=== PATIENT | female | born 1975 | race Caucasian/White ===

== ENCOUNTER 2019-03-22 08:07 | Inpatient (IN) | payer MEDICAID ==
[~2019-03-22] VITALS: Ht 160 cm; Wt 64.0 kg
[2019-03-22] VITALS (25 sets, daily range): BP systolic 101–121; BP diastolic 54–72; PULSE 57–80; RESP 8–19; Ht 160 cm; Wt 64.0 kg
[~2019-03-22 08:07] MED LIST: CEFAZOLIN 2 GM/50 ML (PMX) 50 ML IVPB SCH; SOD CHLORIDE 0.9% 1,000 ML IV SCH
[2019-03-22] MEDS ORDERED: DEXAMETHASONE 4 MG/ML 5 ML INJ ONE (12:29)
[2019-03-22] MEDS ORDERED: CEFAZOLIN 1 GM INJ ONE (12:29)
[2019-03-22] MEDS ORDERED: PROPOFOL 20 ML ONE (12:29)
[2019-03-22] MEDS ORDERED: MIDAZOLAM 1 MG/ML 2 ML INJ ONE (12:29)
[2019-03-22] MEDS ORDERED: LIDOCAINE 2% (SDV) 5 ML INJ ONE (12:29)
[2019-03-22] MEDS ORDERED: SUCCINYLCHOLINE CHLORIDE 100 MG/5 ML SYG IV ONE (12:29)
[2019-03-22] MEDS ORDERED: ONDANSETRON 4 MG INJ ONE ×2 (12:29→14:57)
[2019-03-22] MEDS ORDERED: GENTAMICIN 80 MG INJ ONE (12:56)
[2019-03-22] MEDS ORDERED: LIDOCAINE 1%/EPI (1:100,000) (MDV) 20 ML ONE ×2 (12:56→17:12)
[2019-03-22] MEDS ORDERED: POLYMYXIN/BACITRACIN 1L IRRIG ONE (12:56)
[2019-03-22] MEDS ORDERED: BUPIVACAINE 0.25% (MPF) 30 ML INJ ONE ×2 (12:56→17:12)
[2019-03-22] MEDS ORDERED: GENTAMICIN 160 MG in SOD CHLORIDE 0.9% 100 ML IVPB ONE (13:00)
--- NOTE | 2019-03-22 14:56 | PREAC ---
Date/Time of Note Date/Time of Note DATE: 03/22/19 TIME: 14:53 Anesthesia Eval and Record Evaluation Time Pre-Procedure Interview DATE: 03/22/19 TIME: 14:53 Age 43 Sex female NPO: 8 hrs Preoperative diagnosis Breast Cancer L. Planned procedure Modified Mastectomy, 1st Stage Breast Reconstruction Past Medical History Past Medical History: None Surgery & Anesthesia Issues No known issue Meds Anticoagulation: No Beta Corey within 24 hr: No Reason Beta Corey not given: Pt. not on B-Corey No Active Prescriptions or Reported Meds Current Medications Sodium Chloride 1,000 ml @ 75 mls/hr [id number] IV Last administered on 03/22/19at 06:00; Admin Dose 75 MLS/HR; Start 03/22/19 at 06:00; Stop 03/22/19 at 19:19 Cefazolin Sodium/ Dextrose 50 ml @ 100 mls/hr PREOP IVPB ; Start 03/22/19 at 06:00; Stop 03/22/19 at 16:00 Meds reviewed: Yes Allergies Coded Allergies: No Known Allergy (Unverified , 03/22/19) Allergies Reviewed: Yes Labs/Studies Labs Reviewed: Reviewed by anesthesiologist Result Diagram: 03/22/19 1200 03/22/19 1200 Laboratory Tests 03/22/19 12:00 test: Negative Pre-procedure Exam Last vitals Vital Signs Date Temp Pulse Resp B/P (MAP) Pulse Ox O2 O2 Flow FiO2 Time Delivery Rate 03/22/19 98.1 57 16 104/64 100 Room Air 12:12 (77) Airway: Adequate mouth opening Mallampati: Mallampati II Teeth: Normal Lung: Normal Heart: Normal ASA Physical Status ASA physical status: 2 Emergency: None Planned Anesthetic General/MAC: ETT Pre-operative Attestations Prior to commencing anesthesia and surgery, the patient was re-evaluated, there was verification of: *The patient's identity *The results of appropriate recent lab work and preoperative vital signs *The above evaluation not changing prior to induction *Anesthetic plan, risk benefits, alternative and complications discussed with patient/family; questions answered; patient/family understands, accepts and wishes to proceed. SCOTT PATINO MD March 22, 2019 14:56
[2019-03-22] MEDS ORDERED: ROCURONIUM 50 MG INJ ONE (14:57)
[2019-03-22] MEDS ORDERED: KETOROLAC 30 MG INJ ONE ×2 (14:58→18:23)
--- NOTE | 2019-03-22 15:44 | HPN ---
Date/Time of Note Date/Time of Note DATE: 03/22/19 TIME: 15:44 Interval H&P Admission Note Pt. seen H&P reviewed: No system changes MAGEN ZIMMERMAN MD March 22, 2019 15:44
[2019-03-22] MEDS ORDERED: EPHEDrine 25 MG/5 ML SYG ONE (16:14)
[2019-03-22] MEDS ORDERED: ONDANSETRON 4 MG INJ IV PRN ×2 (16:30→18:00)
[2019-03-22] MEDS ORDERED: OXYCODONE/ACETAMINOPHEN (5/325) TAB PO PRN (18:00)
[2019-03-22] MEDS ORDERED: HYDROmorphONE 1 MG/5 ML IV SYRINGE IV PRN (18:00)
--- NOTE | 2019-03-22 18:51 | PAC ---
Date/Time of Note Date/Time of Note DATE: 03/22/19 TIME: 18:51 Post-Anesthesia Notes Post-Anesthesia Note Last documented vital signs Vital Signs Date Temp Pulse Resp B/P (MAP) Pulse Ox O2 O2 Flow FiO2 Time Delivery Rate 03/22/19 98.1 57 16 104/64 100 Room Air 12:12 (77) Activity: WNL Respiratory function: WNL Cardiovascular function: WNL Mental status: Baseline Pain reasonably controlled: Yes Hydration appropriate: Yes Nausea/Vomiting absent: Yes SCOTT PATINO MD March 22, 2019 18:51
--- NOTE | 2019-03-22 19:16 | OPPN ---
Date/Time of Note Date/Time of Note DATE: 03/22/19 TIME: 19:04 Operative Report Preoperative Diagnosis Immediately post Left Mastectomy for Advanced Left Breast Cancer Postoperative Diagnosis Same Operation/Procedure Performed Immediate First Stage Left Breast Reconstruction Using Subpectoral Tissue Insecticide Expert, Acellular Matrix, and Inferiorly based Major Fasciocutaneous Flap Surgeon Magen Drew M.D. music assistantlamar Patterson M.D. Anesthesia: general (E.T.I., Josh Doung M.D., Local: 60 ml. of 0.5% Lidocain, 0.125% Marcain, and 1/200,000 Epinephrine) Estimated blood loss: 0 - 10 ml's Transfusion Required none Specimen None Grafts/Implants 1. Tissue Insecticide Expert: Catarina Bey [id number] 350cc [id number] 2. Acellular Matrix: Integra, Surgimeaye PRS Ref.# [phone], 8cm x 16cm Lot# [id number] Complications none MAGEN DREW MD March 22, 2019 19:15
--- NOTE | 2019-03-22 20:42 | OPR ---
DATE OF OPERATION: 03/22/2019 PREOPERATIVE DIAGNOSIS: Locally advanced left breast cancer. POSTOPERATIVE DIAGNOSIS: Locally advanced left breast cancer. PROCEDURE: Left modified radical mastectomy with immediate reconstruction. ANESTHESIA: General. ANESTHESIOLOGIST: SURGEON: Dr. Danish Plata PLASTIC SURGEON: Dr. Magen Drew YARN WEIGHER: Dr. Hduson Dexter INDICATION FOR PROCEDURE: The patient is an unfortunate 43-year-old female who presented with an shyanne roximately 6 cm tumor of the left breast. Biopsy confirmed an invasive cancer. She also had biopsy- proven axillary metastasis. She underwent neoadjuvant chemotherapy with limited response and was the n counseled of the need for definitive surgical extirpation. She consented and was scheduled for [facility]. DESCRIPTION OF PROCEDURE: The patient was brought to the operating theater, placed under general ane sthesia. The left breast and axillary region was prepped and draped in the usual sterile fashion. The surgical incision which was previously demarcated by Dr. Drew was incised with 15 blade scalpel widely around the palpable tumor which appeared to be involving a portion of the skin. Subcutaneous tissue was then dissected with cautery. Skin edges were elevated with Allis-Broward clamps and skin fl aps were created using cautery in a sequential fashion, first superiorly to the clavicle then mediall y to the sternal border, inferiorly to the inframammary fold and laterally until the latissimus dorsi muscle was identified throughout its course. Mastectomy then took place from medial to lateral usin g cautery at the border of the pectoralis major muscle. The pectoralis minor muscle was identified. The clavipectoral fascia was incised to allow entry into the axilla. With blunt dissection along th e chest wall, the long thoracic nerve was identified and kept out of harm's way. More superiorly, th e axillary vein and thoracodorsal neurovascular bundles were identified and kept out of harm's way. There were obvious pathologic lymph nodes in the axilla. Therefore, a level I and level II lymph nod e dissection took place using the Voyant device and cautery, and occasionally, Hemoclips were utilize d. In this fashion, the axillary was cleared of any obvious disease, and the remaining connective ti ssue attachments to the latissimus dorsi muscle were then transected with cautery. Specimen was hima denis, oriented and sent for permanent pathologic analysis. The wound was irrigated. Minimal bleeding was controlled with cautery. At this point, Dr. Plata turned control of the operation over to Dr. Magen Drew who proceeded with i mmediate reconstruction, and he will dictate his portion of the operation separately. The total blood loss for Dr. Plata's portion of the operation was approximately 100 mL. There were n o complications, and when Dr. Plata left the room, the patient was in stable condition. Dictated By: DANISH PLATA MD TL/NTS Conf#: [id number] DID#: [id number] CC: MAGEN DREW MD; HUDSON DEXTER MD;*EndCC*
[2019-03-22] MEDS: D5W-0.45 NACL + KCL 20 MEQ 1,000 ML IV SCH (21:07)
[2019-03-22] MEDS: ACETAMINOPHEN 1000MG/100ML IV 100 ML IVPB PRN (21:07)
[2019-03-22] MEDS: morphine 2 MG INJ IV PRN (22:05)
[2019-03-23 00:23] VITALS: BP 105/55; PULSE 72; RESP 18
[2019-03-23] MEDS: D5W-0.45 NACL + KCL 20 MEQ 1,000 ML IV SCH ×3 (00:28→14:05)
--- NOTE | 2019-03-23 00:46 | OPR ---
DATE OF OPERATION: 03/22/2019 PREOPERATIVE DIAGNOSIS: Immediately post left mastectomy with extensive skin resection for advanced left breast cancer. FINAL DIAGNOSIS: Immediately post left mastectomy with extensive skin resection for advanced left br east cancer. OPERATION PERFORMED: Immediate first stage left breast reconstruction using subpectoral placement of tissue natural resources professor implant with implantation of acellular matrix and the use of an inferiorly based kasia or fasciocutaneous flap. SURGEON: Magen Drew MD CYANIDE POT HARDENER: Hudson Patterson MD ANESTHESIA: General endotracheal intubation. ANESTHESIOLOGIST: Josh Schwab MD LOCAL ANESTHETIC INFILTRATION: For postoperative pain control, 60 mL of 0.5% lidocaine, 0.125% Heather ine and 1:200,000 epinephrine solution. ESTIMATED BLOOD LOSS: Less than 10 mL. SPECIMEN: None. DRAIN: Hugo-Ferguson 10 mm flat (x1). DRESSING: Bactroban cream, dry sterile dressing, Tegaderm, ABD pads and mammary support. SPECIFICATIONS OF TISSUE PRODUCT PLANNER USED: [place] Artoura, catalog number [id number] 350 mL, serial num micah [id number]. Total of normal saline in tissue natural resources professor 100 mL. SPECIFICATIONS OF ACELLULAR MATRIX USED: Integra Surgimend PRS, reference number [phone], size 8 cm x 16 cm, lot number [id number]. OPERATIVE PROCEDURE: The patient received 2 grams of intravenous Ancef and 160 mg of intravenous gen tamicin as preoperative antibiotic. The patient was brought to the operating room and in supine posi tion, following adequate monitoring and induction of adequate level of general anesthesia using endot anand intubation. Operation was begun by Dr. Plata, who performed a left nice mastectomy with exte nsive skin resection due to the advanced large tumor that had not responded adequately to the neoadju vant chemotherapy. Following completion of mastectomy by Dr. Plata, I took over and proceeded with t he reconstruction. Initial examination showed a skin opening in an oval shape measuring approximatel y 20 cm in length and 16 cm in width. Hemostasis was carefully checked and assured using electrocoag ulation. Operative area was irrigated using triple antibiotic solution. Same solution was used to i mmerse the tissue natural resources professor and the acellular matrix for over half an hour prior to their use. Inferi or insertion of the pectoralis major muscle was from the chest wall and dissection was alex ied cephalad until an adequate pocket was created for the tissue natural resources professor. Hemostasis was checked an d assured throughout the procedure using electrocoagulation. Operative area was irrigated using copi ous amount of triple antibiotic solution. At this time, the tissue natural resources professor implant was primed with 100 mL of injectable normal saline using aseptic fluid transfer set as a closed delivery system provi ded by [employer]. All the air was removed from the tissue natural resources professor. The natural resources professor was place d inside the pocket and positioned appropriately. The tabs were connected to the chest wall using in terrupted stitches of 2-0 Monocryl. A 10 mm flat Hugo-Ferguson drain was inserted through a stab wou nd over anterior left axillary line inferior to the inframammary fold. This was carried over 8 cm in subcutaneous tissue cephalad to enter the operative space adjacent to the left axilla. The drain wa s now directed into the prepared pocket from superior aspect of the pocket adjacent to the axilla. I t was fixed to the skin using a single suture of 2-0 Monocryl. At this time, the acellular matrix wa s placed that was attached to the chest wall over the left inframammary line area and also to the inf erior border of elevated left pectoralis major muscle. Interrupted and continuous stitches of 2-0 Mo nocryl were used for this portion of the procedure. At this time, the large defect of skin overlying the left pectoralis major muscle and the tissue natural resources professor could not be primarily closed. Therefore, an inferiorly based large fasciocutaneous flap that included the entire width of the breast was eleva álvaro with the base of the flap and the pedicle inferior to the flap. This was advanced superiorly in order to close the defect of skin and subcutaneous tissue using interrupted and continuous stitches o f #1 Vicryl, followed by retention stitches of #1 Prolene. Repair was found to be satisfactory upon its completion. All counts were checked and reported to be correct prior to closure. Dressing was f ollowed as mentioned above, followed by mammary support. The patient tolerated this procedure very w ell and left the operating room to the recovery room awake, stable and in comfortable, satisfactory a nd extubated condition. Dictated By: MAGEN BARRERA/ALIREZA Conf#: [id number] DID#: [id number] CC: MAGEN DREW MD;*End*
--- NOTE | 2019-03-23 01:21 | HP ---
DATE OF ADMISSION: 03/22/2019 CHIEF COMPLAINT AND HISTORY OF PRESENT ILLNESS: The patient is a 43-year-old female with left breast tumor which was subsequently biopsied. The patient is being followed by Dr. Cordova. Biopsy confirme d invasive cancer. She also had biopsy proven axillary metastasis. The patient underwent neoadjuvan t chemotherapy with limited response and was then counseled of the need for definitive surgical proce dure. The patient underwent left modified radical mastectomy by Dr. Cordova with immediate reconstruct ion by Dr. Robin Drew. The patient has postoperative pain and is being admitted for further evaluat ion and management. The patient denies history of headache, dizziness, syncope. No history of cough . No abdominal pain. No history of nausea, vomiting. No history of focal weakness. REVIEW OF SYSTEMS: Other than postoperative pain, rest of review of systems unremarkable. ALLERGIES: NO KNOWN DRUG ALLERGIES. SOCIAL HISTORY: No smoking, no alcohol. FAMILY HISTORY: Noncontributory. PHYSICAL EXAMINATION: GENERAL: The patient is awake, alert. VITAL SIGNS: Temperature 96.8, pulse 72, respirations 13, blood pressure 106/54, O2 saturation 100% on room air. HEENT: Atraumatic, normocephalic. Conjunctivae are normal. Oropharynx is clear. NECK: Supple. No thyromegaly. CHEST: Fairly clear. CARDIOVASCULAR: S1, S2 normal. No murmur. ABDOMEN: Soft, nontender. Bowel sounds plus. EXTREMITIES: No leg edema. NEUROLOGIC: The patient is awake, alert, fairly oriented with no gross focal deficit. LABORATORY DATA: Done this morning, WBC 4.8, hemoglobin 10.6, platelet 195. Sodium 140, potassium 4 .1, BUN 12, creatinine 0.7, glucose 86. Liver enzymes normal. Serum hCG negative. IMPRESSION: Locally advanced left breast cancer status post left modified radical mastectomy with im mediate reconstruction. PLAN: The patient admitted on medical floor. The patient will be started on clear liquid diet to be advanced as tolerated. The patient has received IV Ancef and gentamicin as per protocol. For pain control, the patient was started on IV Tylenol, [place] and IV morphine. We will use SCD for DVT proph ylaxis. Dictated By: MOISE GREGORY/ALIREZA Conf#: [id number] DID#: [id number] CC: CASTRO CORDOVA MD;*[facility]*
[2019-03-23 02:00] VITALS: BP 100/60; PULSE 75; RESP 18
[2019-03-23] MEDS: ACETAMINOPHEN 1000MG/100ML IV 100 ML IVPB PRN (03:48)
[2019-03-23] MEDS: morphine 2 MG INJ IV PRN ×4 (03:52→19:26)
[2019-03-23 04:00] VITALS: BP 109/63; PULSE 74; RESP 18
[2019-03-23 06:00] VITALS: BP 105/61; PULSE 72; RESP 17
--- NOTE | 2019-03-23 09:15 | PN ---
Date/Time of Note Date/Time of Note DATE: 03/23/19 TIME: 09:12 Assessment/Plan VTE Prophylaxis Risk [place]from [facility] [place] risk: 6 SCD applied (from [facility] [place] Yes SCD contraindicated: other Pharmacological prophylaxis: other Pharm contraindication: other Lines/Catheters [facility] Peripheral IV Urinary Cath still in place: No Assessment/Plan Assessment/Plan Locally advanced left breast cancer status post left modified radical mastectomy with immediate reconstruction. - per surgery - IV Ancef and gentamicin as per protocol. - Pain control with IV Tylenol, [place] and IV morphine. - SCD for DVT prophylaxis. Dw Dr Casper Result Diagram: 03/22/19 1200 03/22/19 1200 Results 24hrs Laboratory Tests Test 03/22/19 12:00 White Blood Count 4.8 Red Blood Count 3.35 L Hemoglobin 10.6 L Hematocrit 32.4 L Mean Corpuscular Volume 96.7 Mean Corpuscular Hemoglobin 31.6 Mean Corpuscular Hemoglobin Concent 32.7 Red Cell Distribution Width 15.0 H Platelet Count 195 Mean Platelet Volume 11.2 H Immature Granulocytes % 0.200 Neutrophils % 49.0 Lymphocytes % 41.0 Monocytes % 6.9 Eosinophils % 2.1 Basophils % 0.8 Nucleated Red Blood Cells % 0.0 Immature Granulocytes # 0.010 Neutrophils # 2.3 Lymphocytes # 2.0 Monocytes # 0.3 Eosinophils # 0.1 Basophils # 0.0 Nucleated Red Blood Cells # 0.0 Prothrombin Time 12.6 Prothrombin Time Ratio 1.0 INR International Normalized Ratio 0.93 Activated Partial Thromboplast Time 29.6 Sodium Level 143 Potassium Level 4.1 Chloride Level 109 Carbon Dioxide Level 26 Anion Gap 8 Blood Urea Nitrogen 12 Creatinine 0.76 Est Glomerular Filtrat Rate mL/min > 60 Glucose Level 86 Calcium Level 9.8 Total Bilirubin 0.7 Direct Bilirubin 0.00 Indirect Bilirubin 0.7 Aspartate Amino Transf (AST/SGOT) 21 Alanine Aminotransferase (ALT/SGPT) 17 Alkaline Phosphatase 59 Total Protein 6.5 Albumin 3.9 Globulin 2.60 Albumin/Globulin Ratio 1.50 Serum HCG, Qualitative NEGATIVE Subjective 24 Hr Interval Summary Free Text/Dictation Patient stated her pain is not controlled well and would like to stay another day Eyes: no complaints ENT: no complaints Respiratory: no complaints Cardiovascular: no complaints Gastrointestinal: no complaints Genitourinary: no complaints Musculoskeletal: no complaints Skin: other Exam/Review of Systems Exam Vitals Vital Signs Date Temp Pulse Resp B/P (MAP) Pulse Ox O2 O2 Flow FiO2 Time Delivery Rate 03/23/19 97.9 74 18 109/63 Room Air 04:00 (78) 03/23/19 97 00:23 Intake and Output 03/22/19 03/22/19 03/23/19 1515:00 23:00 07:00 IntakeIntake Total 2500 ml 1550 ml OutputOutput Total 50 ml 25 ml BalanceBalance -50 ml 2475 ml 1550 ml Constitutional: alert, oriented, well developed Psych: nl mood/affect Head: normocephalic Eyes: nl lids, nl sclera ENMT: nl external ears & nose Neck: non-tender Respiratory: clear to auscultation Cardiovascular: nl pulses, other (s1s2) Gastrointestinal: soft, non-tender Musculoskeletal: nl extremities to inspection Extremities: normal pulses Neurological: nl mental status, nl speech Skin: other (sp left maastectomy- DDI;) Lymph: nontender Results Results 24hrs Laboratory Tests Test 03/22/19 12:00 White Blood Count 4.8 Red Blood Count 3.35 L Hemoglobin 10.6 L Hematocrit 32.4 L Mean Corpuscular Volume 96.7 Mean Corpuscular Hemoglobin 31.6 Mean Corpuscular Hemoglobin Concent 32.7 Red Cell Distribution Width 15.0 H Platelet Count 195 Mean Platelet Volume 11.2 H Immature Granulocytes % 0.200 Neutrophils % 49.0 Lymphocytes % 41.0 Monocytes % 6.9 Eosinophils % 2.1 Basophils % 0.8 Nucleated Red Blood Cells % 0.0 Immature Granulocytes # 0.010 Neutrophils # 2.3 Lymphocytes # 2.0 Monocytes # 0.3 Eosinophils # 0.1 Basophils # 0.0 Nucleated Red Blood Cells # 0.0 Prothrombin Time 12.6 Prothrombin Time Ratio 1.0 INR International Normalized Ratio 0.93 Activated Partial Thromboplast Time 29.6 Sodium Level 143 Potassium Level 4.1 Chloride Level 109 Carbon Dioxide Level 26 Anion Gap 8 Blood Urea Nitrogen 12 Creatinine 0.76 Est Glomerular Filtrat Rate mL/min > 60 Glucose Level 86 Calcium Level 9.8 Total Bilirubin 0.7 Direct Bilirubin 0.00 Indirect Bilirubin 0.7 Aspartate Amino Transf (AST/SGOT) 21 Alanine Aminotransferase (ALT/SGPT) 17 Alkaline Phosphatase 59 Total Protein 6.5 Albumin 3.9 Globulin 2.60 Albumin/Globulin Ratio 1.50 Serum HCG, Qualitative NEGATIVE Medications Medication Current Medications Ondansetron HCl (Zofran Inj) 4 mg Q6H PRN IV NAUSEA AND/OR VOMITING; Start 03/22/19 at 16:30 Potassium Chloride/Dextrose/ Sod Cl 1,000 ml @ 125 mls/hr Q8H IV Last administered on 03/23/19at 03:52; Admin Dose 125 MLS/HR; Start 03/22/19 at 16:28 Morphine Sulfate (morphine) 2 mg Q1H PRN IV PAIN Last administered on 03/23/19at 08:16; Admin Dose 2 MG; Start 03/22/19 at 16:30 Acetaminophen 100 ml @ 400 mls/hr Q6H PRN IVPB PAIN Last administered on 03/23/19at 03:48; Admin Dose 400 MLS/HR; Start 03/22/19 at 16:30; Stop 03/23/19 at 16:29 Acetaminophen/ Hydrocodone Bitart ([place] (5/325)) 1 tab Q4H PRN PO MODERATE PAIN LEVEL 4-6; Start 03/22/19 at 23:00 RAMYA FLORES March 23, 2019 09:15
[2019-03-23 09:52] VITALS: BP 98/55; PULSE 64; RESP 18
[2019-03-23] MEDS: BISACODYL (EC) 5 MG TAB PO PRN (10:22)
[2019-03-23] MEDS: DOCUSATE SODIUM 100 MG CAP PO SCH ×2 (10:22→21:00)
[2019-03-23] MEDS: HYDROCODONE/APAP (5/325) TAB PO PRN ×4 (10:22→23:09)
--- NOTE | 2019-03-23 12:44 | RADRPT ---
Vent Rate: 52 bpm RR Interval: 1152 msec RI Interval: 165 msec QRS Duration: 102 msec QT Interval: 434 msec QTC Interval: 404 msec P-R-T [place]: 20 - 81 - 59 degrees Sinus rhythm...normal P axis, V-rate 50- [address] changes Electronically Signed By: Maximilian Canales
--- NOTE | 2019-03-23 15:22 | PN ---
DATE: 03/23/2019 Postop day #1 status post left modified radical mastectomy with immediate reconstruction procedure was done for locally advanced cancer of the left breast. SUBJECTIVE: Complains of too much pain. Has been getting p.o. pain medication, [place] as well as IV morphine to control the pain. Tightness in the skin of the chest wall on the left side on the site of operation. OBJECTIVE: GENERAL: Awake, alert, in no acute distress. VITAL SIGNS: Temperature maximum 98.4, heart rate 74, respiration 18, blood pressure 109/63, saturation 97% on room air. LUNGS: Clear. Decreased tidal volume. HEART: Regular. ABDOMEN: Dressing is intact. SKIN: Hugo-Ferguson drain in place. The patient is lying down in the bed in semi-sitting position. LABORATORY DATA: WBC 8000 with differential 71%, hemoglobin 9.9, hematocrit 31.5. On admission, hemoglobin was 10.6. Chemistry: Sodium, potassium are normal. BUN and creatinine are normal. INPUT AND OUTPUT: There is 1 Hugo-Ferguson drain on the left side which has drained 50 mL from time of operation until today morning and it is serosagoinous in nature. ASSESSMENT AND PLAN: Postop day #1 status post left breast modified radical mastectomy with axillary dissection, also status post immediate first stage left breast reconstruction using subpectoral placement of tissue senior product integrity engineer implant with implantation of acellular matrix and the use of inferiorly based major fasciocutaneous flap. Considering the fact that this was extensive resection because of the size of the tumor and reconstruction was lengthy procedure, the patient feels tight on the skin of anterior chest wall and has required morphine and [place] for control of the pain, the patient is afraid from going home for control of the pain; therefore we are going to keep her one more night here overall for control of the pain and general wellbeing and most probably, we are going to discharge her home tomorrow. Dictated By: QUIN DEXTER MD PS/NTS Conf#: [id number] DID#: [id number] CC: MOISE SOUSA MD; CASTRO CORDOVA MD;*EndCC* MTDD
[2019-03-23] MEDS: CEFAZOLIN 1 GM/50 ML (PMX) 50 ML IVPB SCH ×2 (16:07→23:10)
[2019-03-23 19:35] VITALS: BP 99/57; PULSE 69; RESP 20
[2019-03-24 00:01] VITALS: BP 103/50; PULSE 63; RESP 18
[2019-03-24] MEDS: morphine 2 MG INJ IV PRN ×4 (00:17→13:08)
[2019-03-24 04:00] VITALS: BP 106/58; PULSE 65; RESP 17
[2019-03-24] MEDS: HYDROCODONE/APAP (5/325) TAB PO PRN ×5 (05:02→21:53)
[2019-03-24] MEDS: CEFAZOLIN 1 GM/50 ML (PMX) 50 ML IVPB SCH (05:32)
[2019-03-24 07:45] VITALS: BP 97/56; PULSE 57; RESP 15
[2019-03-24] MEDS: DOCUSATE SODIUM 100 MG CAP PO SCH ×2 (09:17→21:00)
--- NOTE | 2019-03-24 11:50 | PN ---
Date/Time of Note Date/Time of Note DATE: 03/24/19 TIME: 11:49 Assessment/Plan VTE Prophylaxis Risk score (from Ns)>0 risk: 7 [place] [facility] [place] Pharmacological prophylaxis: LMWH Lines/Catheters IV Catheter Type (from [facility] Peripheral IV Urinary Cath still in place: No Assessment/Plan Hospital Course Locally advanced left breast cancer status post left modified radical mastectomy with immediate reconstruction. - per surgery - IV Ancef and gentamicin as per protocol. - Pain control with IV Tylenol, Sinclair and IV morphine. - SCD for DVT prophylaxis. Result Diagram: 03/24/1944703/24/19447 Results 24hrs Laboratory Tests Test 03/24/19 04:48 White Blood Count 6.3 # Red Blood Count 2.88 L Hemoglobin 9.2 L Hematocrit 29.3 L Mean Corpuscular Volume 101.7 H Mean Corpuscular Hemoglobin 31.9 Mean Corpuscular Hemoglobin Concent 31.4 L Red Cell Distribution Width 15.5 H Platelet Count 164 Mean Platelet Volume 11.1 H Immature Granulocytes % 0.200 Neutrophils % 53.3 Lymphocytes % 32.8 Monocytes % 11.8 H Eosinophils % 1.4 Basophils % 0.5 Nucleated Red Blood Cells % 0.0 Immature Granulocytes # 0.010 Neutrophils # 3.4 Lymphocytes # 2.1 Monocytes # 0.7 Eosinophils # 0.1 Basophils # 0.0 Nucleated Red Blood Cells # 0.0 Sodium Level 141 Potassium Level 4.5 Chloride Level 110 Carbon Dioxide Level 27 Anion Gap 4 L Blood Urea Nitrogen 6 L Creatinine 0.67 Est Glomerular Filtrat Rate mL/min > 60 Glucose Level 96 Calcium Level 8.8 Subjective 24 Hr Interval Summary Free Text/Dictation Patient still have fair amount of pain requiring intravenous pain medication Exam/Review of Systems Exam Vitals Vital Signs Date Temp Pulse Resp B/P (MAP) Pulse Ox O2 O2 Flow FiO2 Time Delivery Rate 03/24/19 98.0 57 15 97/56 (70) 100 Room Air 07:45 Intake and Output 03/23/19 03/23/19 03/24/19 1414:59 22:59 06:59 IntakeIntake Total 1170 ml 1625 ml 340 ml OutputOutput Total 100 ml 45 ml 60 ml BalanceBalance 1070 ml 1580 ml 280 ml Constitutional: well developed Head: normocephalic, atraumatic Neck: supple Respiratory: diminished breath sounds Cardiovascular: regular rate and rhythm Gastrointestinal: soft, non-tender Extremities: normal pulses Results Results 24hrs Laboratory Tests Test 03/24/19 04:48 White Blood Count 6.3 # Red Blood Count 2.88 L Hemoglobin 9.2 L Hematocrit 29.3 L Mean Corpuscular Volume 101.7 H Mean Corpuscular Hemoglobin 31.9 Mean Corpuscular Hemoglobin Concent 31.4 L Red Cell Distribution Width 15.5 H Platelet Count 164 Mean Platelet Volume 11.1 H Immature Granulocytes % 0.200 Neutrophils % 53.3 Lymphocytes % 32.8 Monocytes % 11.8 H Eosinophils % 1.4 Basophils % 0.5 Nucleated Red Blood Cells % 0.0 Immature Granulocytes # 0.010 Neutrophils # 3.4 Lymphocytes # 2.1 Monocytes # 0.7 Eosinophils # 0.1 Basophils # 0.0 Nucleated Red Blood Cells # 0.0 Sodium Level 141 Potassium Level 4.5 Chloride Level 110 Carbon Dioxide Level 27 Anion Gap 4 L Blood Urea Nitrogen 6 L Creatinine 0.67 Est Glomerular Filtrat Rate mL/min > 60 Glucose Level 96 Calcium Level 8.8 Medications Medication Current Medications Ondansetron HCl (Zofran Inj) 4 mg Q6H PRN IV NAUSEA AND/OR VOMITING; Start 03/22/19 at 16:30 Morphine Sulfate (morphine) 2 mg Q1H PRN IV PAIN Last administered on 03/24/19at 10:27; Admin Dose 2 MG; Start 03/22/19 at 16:30 Acetaminophen/ Hydrocodone Bitart (Sinclair (5/325)) 1 tab Q4H PRN PO MODERATE PAIN LEVEL 4-6 Last administered on 03/24/19at 09:17; Admin Dose 1 TAB; Start 03/22/19 at 23:00 Bisacodyl (Dulcolax) 5 mg DAILY PRN PO CONSTIPATION Last administered on 03/23/19at 10:22; Admin Dose 5 MG; Start 03/23/19 at 09:30 Docusate Sodium (Colace) 200 mg BID PO Last administered on 03/24/19 09:17; Admin Dose 200 MG; Start 03/23/19 at 09:30 KALEB BASS March 24, 2019 11:49
[2019-03-24] MEDS ORDERED: PATIENT'S OWN MEDICATION PO SCH (14:00)
[2019-03-24 14:45] VITALS: BP 96/55; PULSE 75; RESP 15
[2019-03-24] MEDS: KETOROLAC 30 MG INJ IV SCH ×2 (14:55→17:54)
[2019-03-24] MEDS: CEFADROXIL 500 MG PO SCH ×2 (15:56→21:52)
[2019-03-24] MEDS: BISACODYL (EC) 5 MG TAB PO PRN (16:00)
--- NOTE | 2019-03-24 19:14 | PN ---
DATE: 03/24/2019 Postop day #2, status post left breast modified radical mastectomy with axillary dissection for exten sive cancer of the left breast and also status post immediate first stage left breast reconstruction using subpectoral placement of tissue seamer panty hose implant with implantation of acellular matrix and the use inferiorly based major fasciocutaneous flap. SUBJECTIVE: The patient has been complaining of tightness of the skin of the chest wall on the left side since after operation. Still she feels tightness today, but slightly better. Has been out of b ed and walked around a little bit. Has been tolerating diet, but has been requiring Sheridan and morphi ne IV to control the pain. There is a Hugo-Ferguson drain in place. OBJECTIVE: VITAL SIGNS: Temperature maximum 98, heart rate 65, respirations 17, blood pressure 97/56, saturatio n 98% room air. INPUT AND OUTPUTS: The Hugo-Ferguson drain has drained 205 mL of fluid, which is the more bloody toan n serosanguineous on the left side. LABORATORY DATA: WBC 6300 with 53% segmented neutrophils. Platelet is 164. Hemoglobin is 9.2, savannah tocrit 29.3, some drop from the old admission. ASSESSMENT AND PLAN: Considering that the patient's pain is not under control, I changed the medicat ion to add Toradol 30 mg IV q.6h. around the clock. Discontinue morphine and continue Sheridan. We javi l keep the patient 1 more day here to control the pain and also make sure that there is not going to be more bleeding because the Hugo-Ferguson drain has been draining bloody fluid 205 mL in past 24 gonzalez rs. Dictated By: QUIN DEXTER MD PS/NTS Conf#: [id number] DID#: [id number] CC: CASTRO CORDOVA MD;*EndCC*
[2019-03-24 19:47] VITALS: BP 105/58; PULSE 74; RESP 18
[2019-03-25 01:49] VITALS: BP 111/60; PULSE 74; RESP 18
[2019-03-25] MEDS: HYDROCODONE/APAP (5/325) TAB PO PRN ×4 (01:49→15:41)
[2019-03-25] MEDS: KETOROLAC 30 MG INJ IV SCH ×3 (01:49→11:33)
[2019-03-25 04:00] VITALS: BP 116/55; PULSE 72; RESP 19
[2019-03-25] MEDS: BISACODYL (EC) 5 MG TAB PO PRN (06:50)
[2019-03-25 07:29] VITALS: BP 97/60; PULSE 60; RESP 14
[2019-03-25] MEDS: DOCUSATE SODIUM 100 MG CAP PO SCH (09:16)
[2019-03-25] MEDS: CEFADROXIL 500 MG PO SCH (09:16)
--- NOTE | 2019-03-25 11:59 | DS ---
Date/Time of Note Date/Time of Note DATE: 03/25/19 TIME: 11:58 Discharge Summary Admission/Discharge Info Admit Date/Time March 23, 2019 at 16:09 Discharge Date/Time 03/25/19 Discharge Diagnosis Locally advanced left breast cancer status post left modified radical mastectomy with immediate reconstruction. - per surgery - IV Ancef and gentamicin as per protocol. - Pain control with IV Tylenol, [place] and IV morphine. - SCD for DVT prophylaxis. Patient Condition: Fair Consults surgery Procedures mastectomy Hx of Present Illness Patient with locally advanced breast cancer comes in for mastectomy. Hospital Course Patient with locally advanced breast cancer comes in for mastectomy. Patient tolerated the procedure and when stable, kristie was sent home. Locally advanced left breast cancer status post left modified radical mastectomy with immediate reconstruction. - per surgery - IV Ancef and gentamicin as per protocol. - Pain control with IV Tylenol, [place] and IV morphine. - SCD for DVT prophylaxis. Home Meds No Active Prescriptions or Reported Meds Primary Care Provider Not On Staff Doctor Pending Labs Laboratory Tests Test 03/25/19 04:46 White Blood Count 6.8 10^3/ul (4.8-10.8) Red Blood Count 3.06 10^6/ul (4.20-5.40) Hemoglobin 9.7 g/dl (12.0-16.0) Hematocrit 30.8 % (37.0-47.0) Mean Corpuscular Volume 100.7 fl (82.0-101.0) Mean Corpuscular Hemoglobin 31.7 pg (29.0-33.0) Mean Corpuscular Hemoglobin Concent 31.5 g/dl (32.0-37.0) Red Cell Distribution Width 14.9 % (11.5-14.5) Platelet Count 171 10^3/UL (140-415) Mean Platelet Volume 10.9 fl (7.4-10.4) Immature Granulocytes % 0.100 % (0.001-0.429) Neutrophils % 57.4 % (39.0-77.0) Lymphocytes % 28.1 % (15.0-51.0) Monocytes % 11.4 % (0.0-11.0) Eosinophils % 2.6 % (0.0-7.0) Basophils % 0.4 % (0.0-2.0) Nucleated Red Blood Cells % 0.0 /100WBC (0.0-0.0) Immature Granulocytes # 0.010 10^3/ul (0.0-0.031) Neutrophils # 3.9 10^3/ul (1.6-7.5) Lymphocytes # 1.9 10^3/ul (0.8-2.9) Monocytes # 0.8 10^3/ul (0.3-0.9) Eosinophils # 0.2 10^3/ul (0.0-0.5) Basophils # 0.0 10^3/ul (0.0-0.1) Nucleated Red Blood Cells # 0.0 10^3/ul (0.0-0.0) KALEB BASS March 25, 2019 11:59
== END 2019-03-25 17:36 | disposition home or self-care (01) | DRG 583 ==
LOC: SDS 08:07 → MS1 18:52 → SDS 18:53 → OBSVTOIN 03-23 16:09
PROVIDERS: ADMIT Surgery Surgical Oncology; ATTEND Surgery Surgical Oncology
PROC: 0HTU0ZZ Resection of Left Breast, Open Approach (ICD-10-PCS; principal; 2019-03-22 13:00)
PROC: 0HHU0NZ Insertion of Tissue Expander into Left Breast, Open Approach (ICD-10-PCS; 2019-03-22 13:00)
DX: C50.912 Malignant neoplasm of unspecified site of left female breast (principal)
CPT/HCPCS: 71045; 80048; 80053; 84703; 85025; 85610; 85730; 88307; 93005; 99217; G0378; J0131; J0690; J1100; J1580; J1885; J2250; J2270; J2405; J3010; J3480